=== PATIENT | male | born 1955 | race Caucasian/White ===

== ENCOUNTER → 2021-08-27 10:44 | Outpatient (CLI) | payer MEDICARE, SELFPAY ==
--- NOTE | ~2021-08-27 | MR_ITS ---
EXAMINATION: MR knee LT wo con DATE: 08/27/2021 11:37 INDICATION: Left knee pain TECHNIQUE: Magnetic resonance imaging (MRI) of the left knee was performed without intravenous contra st. Sequences included coronal PD-weighted FSE, coronal PD-weighted FS FSE, sagittal T2-weighted FSE , sagittal PD-weighted FS FSE and axial PD weighted fat saturated FSE. COMPARISON: None. FINDINGS: Medial compartment: There is a tear of indeterminate morphology, likely complex at the body of the medial meniscus. There is deep chondral ulceration with underlying cortical irregularity and increased edema-like marrow si gnal change along the anterior to central weightbearing medial femoral condyle. There is also approxi mately 1.7 x 1.6 x 0.9 cm region of cystlike change underlying the anterior weightbearing medial femo ral condyle. Similar deep chondral ulceration with underlying edema signal change and smaller cystlik e changes along the medial and anterior margins of the medial tibial plateau. Lateral compartment: Lateral meniscus is normal. Shallow chondral ulceration and deep fissuring without degenerative subch ondral changes at the central aspect of the lateral tibial plateau. Partial-thickness chondral fissur ing involving less than 50% the cartilage thickness at the central weightbearing lateral femoral cond yle. Patellofemoral compartment: Deep chondral ulceration with underlying cortical irregularity and mild edema-like changes at both th e medial and lateral trochlea with the anterior predominance patellar cartilage appears relatively pr eserved. Ligaments and tendons: Anterior and posterior cruciate ligaments are normal. The medial collateral ligament and fibular helder ateral ligament complex are normal. Mild distal patellar tendinopathy with enthesophytes at the anter ior tibial tuberosity insertion. Additional small enthesophytes at the patellar insertion of the norm al distal quadriceps tendon. The visualized medial and lateral hamstring tendons as well as the iliot ibial band are normal. Fluid: Physiologic amount of fluid in the joint space. No loose osteochondral bodies identified. Osseous/other: Bone alignment is normal. No fracture or pathologic marrow replacing process. IMPRESSION: 1. Tear, likely complex, at the body of the medial meniscus. 2. 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 Reviewed, dictated and finalized at location A. COORDINATOR IMPRESSION: 1. Tear, likely complex, at the body of the medial meniscus. 2. 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
== END ==
PROVIDERS: PCP Internal Medicine; Visit Provider Internal Medicine
DX: M25.562 Pain in left knee (principal); S83.242A Other tear of medial meniscus, current injury, left knee, initial encounter; M17.12 Unilateral primary osteoarthritis, left knee; M22.42 Chondromalacia patellae, left knee
CPT/HCPCS: 73721